=== PATIENT | male | born 1995 | race Caucasian/White ===

== ENCOUNTER 2016-07-29 13:11 | Emergency (ER) | payer BC ==
[~2016-07-29] VITALS: Wt 74.4 kg
[~2016-07-29 13:11] MED LIST: MOTRIN600 MG PO; MOTRIN800 MG PO; NKHM; VICODIN 500 MG-1 TAB PO; VICODIN1 TAB PO
[2016-07-29 13:13] VITALS: BP 151/92
== END 2016-07-29 14:44 | disposition home or self-care (01) ==
LOC: ED 13:11
DX: S63.92XA Sprain of unspecified part of left wrist and hand, initial encounter (principal); S60.417A Abrasion of left little finger, initial encounter; S60.415A Abrasion of left ring finger, initial encounter; W22.01XA Walked into wall, initial encounter; Y93.89 Activity, other specified; Y92.89 Other specified places as the place of occurrence of the external cause; Y99.9 Unspecified external cause status

== ENCOUNTER 2020-02-07 10:33 | Emergency (ER) | payer OTHER ==
[2020-02-07 10:46] VITALS: BP 135/90
== END 2020-02-07 12:45 | disposition home or self-care (01) ==
LOC: ED 10:33
DX: S16.1XXA Strain of muscle, fascia and tendon at neck level, initial encounter (principal); S00.83XA Contusion of other part of head, initial encounter; W01.0XXA Fall on same level from slipping, tripping and stumbling without subsequent striking against object, initial encounter; Y93.89 Activity, other specified; Y92.89 Other specified places as the place of occurrence of the external cause; Y99.8 Other external cause status

== ENCOUNTER 2020-04-25 10:05 | Emergency (ER) | payer OTHER ==
[~2020-04-25] VITALS: Ht 187.9 cm; Wt 95.3 kg
[2020-04-25 10:12] VITALS: BP 130/87
[2020-04-25] MEDS ORDERED: CYCLOBENZAPRINE5 M3 PO (10:28)
[2020-04-25] MEDS ORDERED: Motrin,Rufen800 MG PO (10:28)
== END 2020-04-25 10:22 | disposition home or self-care (01) ==
LOC: ED 10:05
DX: M79.18 Myalgia, other site (principal); M79.622 Pain in left upper arm; M79.621 Pain in right upper arm; M79.661 Pain in right lower leg; M79.662 Pain in left lower leg; F17.200 Nicotine dependence, unspecified, uncomplicated; V43.52XA Car driver injured in collision with other type car in traffic accident, initial encounter; Y93.I9 Activity, other involving external motion; Y92.488 Other paved roadways as the place of occurrence of the external cause; Y99.8 Other external cause status